=== PATIENT | male | born 1950 | race Caucasian/White ===

== ENCOUNTER 2018-04-16 20:05 | Emergency (ER) | payer MEDICARE ==
[~2018-04-16] VITALS: Ht 182.9 cm; Wt 90.9 kg
[2018-04-16 20:22] VITALS: Ht 182.9 cm; Wt 90.9 kg
[2018-04-16 21:07] LABS: BASOPHILS 0.2 % (0-2); EOSINOPHILS 2.3 % (0-7); HEMATOCRIT 44.2 % (42.0-54.0); HEMOGLOBIN 15.7 g/dL (13.5-17.5); IMMATURE GRANULOCYTES 0.2 % (0-5); LYMPHOCYTES 33.3 % (15-50); MCH 33.6 pg (26.0-34.0); MCHC 35.5 g/dL (31.0-37.0); MCV 94.6 fL (80.0-100.0); MEAN PLATELET VOLUME 11.9 fL (7.4-10.4); MONOCYTES 8.8 % (2-11); NEUTROPHILS 55.2 % (40-80); PLATELET COUNT 118 10x3/uL (130-400); RBC 4.67 10x6/uL (4.20-6.10); RDW 13.3 % (11.5-14.5); WBC 8.6 10x3/uL (4.8-10.8)
[2018-04-16 21:13] LABS: INR 1.18 (0.85-1.17); PROTIME 14.6 SECONDS (11.6-15.0)
[2018-04-16 21:18] LABS: ALBUMIN 3.6 g/dL (3.4-5.0); ALKALINE PHOSPHATASE 56 U/L (46-116); ALT (SGPT) 17 U/L (10-68); BILIRUBIN - TOTAL 0.83 mg/dL (0.2-1.3); CALC OSMOLALITY 279 mosm/kg (275-300); CALCIUM 9.2 mg/dL (8.5-10.1); CARBON DIOXIDE 23.8 mmol/L (21.0-32.0); CHLORIDE - SERUM 104 mmol/L (98-107); CREATININE - SERUM 1.8 mg/dL (0.6-1.3); GLUCOSE 149 mg/dL (74-106); PROTEIN - SERUM 7.7 g/dL (6.4-8.2); SODIUM 138 mmol/L (136-145); UREA NITROGEN 14 mg/dL (7-18); eGFR NON AFRICAN AMERICAN 40 mL/min (90-120)
[2018-04-16 21:19] LABS: POTASSIUM - SERUM 5.5 mmol/L (3.5-5.1)
[2018-04-16 21:33] LABS: CKMB 4.1 U/L (0.0-3.6); CREATINE KINASE 254 UL (21-232); PRO BNP 110 pg/mL (0-125); THYROID STIMULATING HORMONE 0.95 uIU/mL (0.36-3.74)
[2018-04-16 21:39] LABS: C-REACTIVE PROTEIN < 0.2 mg/dL (0.0-0.9); TROPONIN-I < 0.017 ng/mL (0.000-0.060)
[2018-04-16] MEDS ORDERED: NORVASC10 MG PO (22:13)
[2018-04-16 23:07] VITALS: BP 165/100
== END 2018-04-16 23:04 | disposition home or self-care (01) ==
LOC: D.ER 20:05
PROVIDERS: Emergency Medicine
DX: I10 Essential (primary) hypertension (principal); M19.90 Unspecified osteoarthritis, unspecified site; F17.200 Nicotine dependence, unspecified, uncomplicated

== ENCOUNTER 2018-08-12 12:21 | Emergency (ER) | payer MEDICARE ==
[~2018-08-12] VITALS: Ht 182.9 cm; Wt 90.0 kg
[~2018-08-12 12:21] MED LIST: NORVASC10 MG PO
[2018-08-12 12:32] VITALS: Ht 182.9 cm; Wt 90.0 kg
[2018-08-12 13:50] LABS: BASOPHILS 0.2 % (0-2); EOSINOPHILS 1.3 % (0-7); HEMATOCRIT 45.3 % (42.0-54.0); HEMOGLOBIN 15.9 g/dL (13.5-17.5); IMMATURE GRANULOCYTES 0.2 % (0-5); LYMPHOCYTES 25.7 % (15-50); MCH 33.2 pg (26.0-34.0); MCHC 35.1 g/dL (31.0-37.0); MCV 94.6 fL (80.0-100.0); MEAN PLATELET VOLUME 11.4 fL (7.4-10.4); MONOCYTES 6.5 % (2-11); NEUTROPHILS 66.1 % (40-80); PLATELET COUNT 124 10x3/uL (130-400); RBC 4.79 10x6/uL (4.20-6.10); RDW 13.5 % (11.5-14.5); WBC 10.8 10x3/uL (4.8-10.8)
[2018-08-12 14:02] LABS: ANION GAP 12.6 mmol/L (8-16); CALCIUM 9.6 mg/dL (8.5-10.1); CARBON DIOXIDE 27.8 mmol/L (21.0-32.0); CREATININE - SERUM 1.7 mg/dL (0.6-1.3); POTASSIUM - SERUM 4.4 mmol/L (3.5-5.1)
[2018-08-12] MEDS ORDERED: NORVASC10 MG PO (14:41)
[2018-08-12] MEDS ORDERED: HYDROCHLOROTHIA25 MG PO (14:41)
[2018-08-12 17:13] VITALS: BP 176/88
== END 2018-08-12 17:14 | disposition home or self-care (01) ==
LOC: D.ER 12:21
PROVIDERS: Emergency Medicine
DX: I10 Essential (primary) hypertension (principal); F17.200 Nicotine dependence, unspecified, uncomplicated